=== PATIENT | male | born 1960 | race Caucasian/White ===

== ENCOUNTER 2018-04-11 10:51 | Outpatient (CLI) | payer MEDICAID ==
--- NOTE | 2018-04-11 14:42 | XRAY Report ---
Reason: KNEE PAIN,LEFT Procedure Date: 04/11/2018 Accession Number: [id number] / [id number] Procedure: XRN - Knee 3 View LT CPT Code: FULL RESULT: EXAM: LEFT KNEE RADIOGRAPHY EXAM DATE: 04/11/2018 11:20 AM. CLINICAL HISTORY: KNEE PAIN,LEFT. COMPARISON: None. TECHNIQUE: 3 views. FINDINGS: Bones: Normal. No fractures or bone lesions. Joints: Normal. No effusion. No subluxations. Soft Tissues: Normal. No soft tissue swelling. IMPRESSION: Negative knee radiography. [facility]
== END 2018-04-11 10:52 | disposition home or self-care (01) ==
LOC: DI.N 10:51
PROVIDERS: ATTEND Physician Assistant Medical
DX: M25.562 Pain in left knee (principal)

== ENCOUNTER 2018-09-02 10:03 | Outpatient (CLI) | payer MEDICAID ==
[2018-09-02 12:53] LABS: BASOPHILS # (AUTO) 0.2 10^3/uL (0.0-0.1); BASOPHILS % (AUTO) 2.1 %; EOSINOPHILS # (AUTO) 0.2 10^3/uL (0.0-0.7); EOSINOPHILS % (AUTO) 2.5 %; HGB - HEMOGLOBIN 16.8 g/dL (14.0-18.0); LYMPHOCYTES # (AUTO) 1.7 10^3/uL (1.5-3.5); LYMPHOCYTES % (AUTO) 24.4 %; MEAN CORPUSCULAR HEMOGLOBIN 31.3 pg (27.0-31.0); MEAN CORPUSCULAR HGB CONC 31.7 g/dL (32.0-36.0); MEAN CORPUSCULAR VOLUME 98.7 fL (80.0-94.0); MEAN PLATELET VOLUME 9.1 fL (7.4-11.4); MONOCYTES # (AUTO) 0.6 10^3/uL (0.0-1.0); MONOCYTES % (AUTO) 8.4 %; NEUTROPHILS # (AUTO) 4.5 10^3/uL (1.5-6.6); NEUTROPHILS % (AUTO) 62.6 %; PLT - PLATELET COUNT 339 10^3/uL (130-450); RED BLOOD COUNT 5.37 10^6/uL (4.70-6.10); RED CELL DISTRIBUTION WIDTH 16.3 % (12.0-15.0); WHITE BLOOD COUNT 7.1 x10^3/uL (4.8-10.8)
[2018-09-02 13:20] LABS: FOLATE 6.4 ng/mL (5.90 - >24.8)
[2018-09-02 13:28] LABS: % IRON SATURATION 23 % (20-50); ALBUMIN 4.2 g/dL (3.2-5.5); ALBUMIN/GLOBULIN RATIO 1.1 (1.0-2.2); ALKALINE PHOSPHATASE 85 IU/L (42-121); ALT ALANINE AMINOTRANSFERASE 28 IU/L (10-60); AST ASPARTATE AMINOTRANSFERASE 30 IU/L (10-42); BILIRUBIN,TOTAL 0.2 mg/dL (0.2-1.0); BUN - BLOOD UREA NITROGEN 31 mg/dL (6-20); CALCIUM 9.4 mg/dL (8.5-10.3); CARBON DIOXIDE - CO2 24 mmol/L (21-32); CHLORIDE 101 mmol/L (101-111); CHOL/HDL RATIO 3.4 (<5.0); CHOLESTEROL 196 mg/dL; CREATININE 1.6 mg/dL (0.6-1.2); GFR - MDRD 45 (>89); GLUCOSE 95 mg/dL (70-100); HDL CHOLESTEROL 57 mg/dL; IRON 78 ug/dL (45-182); LDL CHOLESTEROL,CALCULATED 126 mg/dL; LDL/HDL RATIO 2.2 (<3.6); SODIUM 133 mmol/L (135-145); TOTAL IRON BINDING CAPACITY 339 ug/dL (250-450); TRANSFERRIN 242 mg/dL (180-329); VLDL CHOLESTEROL 13 mg/dL
== END 2018-09-02 23:59 | disposition home or self-care (01) ==
LOC: LAB.N 10:03
PROVIDERS: ATTEND Nurse Practitioner
DX: I10 Essential (primary) hypertension (principal); E83.119 Hemochromatosis, unspecified
CPT/HCPCS: 36415; 80053; 80061; 82607; 82728; 82746; 83540; 83721; 84466; 85025

== ENCOUNTER 2019-03-06 14:21 | Outpatient (CLI) | payer MEDICAID ==
[2019-03-06 18:31] LABS: HGB - HEMOGLOBIN 16.1 g/dL (14.0-18.0)
[2019-03-06 18:33] LABS: BILIRUBIN,URINE NEGATIVE (NEGATIVE); GLUCOSE, URINE (UA) NEGATIVE (NEGATIVE); KETONES,URINE (UA) NEGATIVE (NEGATIVE); LEUKOCYTE ESTERASE, URINE NEGATIVE (NEGATIVE); NITRITE,URINE NEGATIVE (NEGATIVE); OCCULT BLOOD,URINE NEGATIVE (NEGATIVE); PH,URINE 5.5 PH (5.0-7.5); PROTEIN,URINE 30 mg/dL (NEGATIVE); UROBILINOGEN,URINE 0.2 (NORMAL) E.U./dL (NORMAL)
[2019-03-06 18:58] LABS: CLARITY,URINE CLEAR (CLEAR)
[2019-03-06 18:59] LABS: BACTERIA,URINE None Seen /HPF (None Seen); RBC,URINE None Seen /HPF (0-5); SQUAMOUS EPITHELIAL CELL,UR NONE SEEN (<= Few)
[2019-03-06 19:32] LABS: CREATININE,URINE 255.3 mg/dL; PROTEIN/CREATININE RATIO,URINE 0.2 (<=0.2)
[2019-03-06 19:39] LABS: FERRITIN 73.3 ng/mL (23.9-336.2)
[2019-03-06 19:57] LABS: CALCIUM 9.2 mg/dL (8.5-10.3); CREATININE 1.5 mg/dL (0.6-1.2); PHOSPHORUS 1.8 mg/dL (2.5-4.6)
== END 2019-03-06 23:59 | disposition home or self-care (01) ==
LOC: LAB.N 14:21
PROVIDERS: ATTEND Student in an Organized Health Care Education/Training Program
DX: N05.9 Unspecified nephritic syndrome with unspecified morphologic changes (principal); D50.0 Iron deficiency anemia secondary to blood loss (chronic); D64.9 Anemia, unspecified; N30.00 Acute cystitis without hematuria; R80.9 Proteinuria, unspecified; E83.30 Disorder of phosphorus metabolism, unspecified; N25.81 Secondary hyperparathyroidism of renal origin
CPT/HCPCS: 36415; 80048; 81001; 82570; 82728; 83540; 83970; 84100; 84156; 84466; 85014; 85018; 87086

== ENCOUNTER 2019-04-09 08:00 | Outpatient (CLI) | payer MEDICAID | END 2019-04-09 23:59 | disposition home or self-care (01) | LOC: LAB.N 08:00 | PROVIDERS: ATTEND Student in an Organized Health Care Education/Training Program | DX: E83.30 Disorder of phosphorus metabolism, unspecified (principal) | CPT/HCPCS: 36415; 84100 ==

== ENCOUNTER 2019-04-09 13:10 | Outpatient (CLI) | payer MEDICAID ==
--- NOTE | 2019-04-10 15:05 | XRAY Report ---
Reason: CARDIOMYPATHY Procedure Date: 04/09/2019 Accession Number: [id number] / [id number] Procedure: XRN - Chest 2 View X-Ray CPT Code: 82513 FULL RESULT: EXAM: CHEST RADIOGRAPHY, 2 VIEWS EXAM DATE: 04/09/2019 01:25 PM. CLINICAL HISTORY: Cardiomypathy in a 58-year-old male. COMPARISON: CHEST 2 VIEW PA/LAT 05/16/2016 4:27 PM. TECHNIQUE: Upright PA and lateral views. FINDINGS: Lungs/Pleura: Moderate hyperinflation bilaterally. Small bilateral nipple shadows again noted bilaterally. No infiltrates, effusions or pneumothorax. Mediastinum: Heart size normal, without adenopathy or pulmonary vascular congestion. Other: Trachea is midline. Osseous structures are unremarkable for age. IMPRESSION: Stable chest. Hyperinflation consistent with COPD, similar to prior exam. No pneumonia, CHF or other acute process. [facility]
== END 2019-04-09 13:11 | disposition home or self-care (01) ==
LOC: DI.N 13:10
PROVIDERS: ATTEND Physician Assistant Medical
DX: I42.9 Cardiomyopathy, unspecified (principal); E83.30 Disorder of phosphorus metabolism, unspecified
CPT/HCPCS: 36415; 71046; 84100

== ENCOUNTER 2019-09-18 13:35 | Outpatient (CLI) | payer MEDICAID ==
[2019-09-18 19:25] LABS: HGB - HEMOGLOBIN 17.6 g/dL (14.0-18.0)
[2019-09-18 19:43] LABS: CALCIUM 9.5 mg/dL (8.5-10.3); CREATININE 2.9 mg/dL (0.6-1.2); PHOSPHORUS 3.4 mg/dL (2.5-4.6)
[2019-09-18 20:16] LABS: CREATININE,URINE 135.9 mg/dL; PROTEIN/CREATININE RATIO,URINE 4.3 (<=0.2)
== END 2019-09-18 23:59 | disposition home or self-care (01) ==
LOC: LAB.N 13:35
PROVIDERS: ATTEND Student in an Organized Health Care Education/Training Program
DX: N05.9 Unspecified nephritic syndrome with unspecified morphologic changes (principal); R80.9 Proteinuria, unspecified; D64.9 Anemia, unspecified; E83.30 Disorder of phosphorus metabolism, unspecified; N25.81 Secondary hyperparathyroidism of renal origin
CPT/HCPCS: 36415; 80048; 82570; 83970; 84100; 84156; 85014; 85018

== ENCOUNTER 2019-09-24 11:36 | Outpatient (CLI) | payer MEDICAID ==
[2019-09-24 18:53] LABS: BILIRUBIN,URINE NEGATIVE (NEGATIVE); GLUCOSE, URINE (UA) NEGATIVE (NEGATIVE); KETONES,URINE (UA) NEGATIVE (NEGATIVE); LEUKOCYTE ESTERASE, URINE NEGATIVE (NEGATIVE); NITRITE,URINE NEGATIVE (NEGATIVE); OCCULT BLOOD,URINE TRACE-INTA (NEGATIVE); PROTEIN,URINE >=300 mg/dL (NEGATIVE); UROBILINOGEN,URINE 0.2 (NORMAL) E.U./dL (NORMAL)
[2019-09-24 18:54] LABS: CALCIUM 9.2 mg/dL (8.5-10.3); CREATININE 3.2 mg/dL (0.6-1.2)
[2019-09-24 19:02] LABS: CLARITY,URINE CLEAR (CLEAR)
[2019-09-24 19:23] LABS: BACTERIA,URINE None Seen /HPF (None Seen); RBC,URINE 0-5 /HPF (0-5); SQUAMOUS EPITHELIAL CELL,UR RARE Squamous (<= Few)
[2019-09-24 19:44] LABS: CREATININE,URINE 288.9 mg/dL; MICROALBUM/CREATININE RATIO,UR 3426.1 ug/mg (<30.0); MICROALBUMIN,URINE 989.8 mg/dL (0-300.0)
[2019-09-25 15:30] LABS: HEPATITIS B SURFACE ANTIGEN NON-REACTIVE (NON-REACTIVE); HEPATITIS C ANTIBODY NON-REACTIVE (NON-REACTIVE)
[2019-09-26 12:29] LABS: ANA SCREEN NEGATIVE (NEGATIVE)
[2019-09-26 14:25] LABS: GLOM BASEMENT MEMBRANE AB IGG <1.0 AI (<1.0)
[2019-09-26 14:55] LABS: COMPLEMENT COMPONENT C3C 143 mg/dL (82-185); COMPLEMENT COMPONENT C4C 42 mg/dL (15-53)
[2019-09-26 18:14] LABS: DNA (DS) ANTIBODY 1 IU/mL
== END 2019-09-24 23:59 | disposition home or self-care (01) ==
LOC: LAB.N 11:36
PROVIDERS: ATTEND Student in an Organized Health Care Education/Training Program
DX: L93.2 Other local lupus erythematosus (principal); M31.30 Wegener's granulomatosis without renal involvement; N05.9 Unspecified nephritic syndrome with unspecified morphologic changes; D89.89 Other specified disorders involving the immune mechanism, not elsewhere classified; R80.9 Proteinuria, unspecified; N30.00 Acute cystitis without hematuria; B19.10 Unspecified viral hepatitis B without hepatic coma; B17.10 Acute hepatitis C without hepatic coma
CPT/HCPCS: 36415; 80048; 81001; 81599; 82043; 82570; 83520; 83883; 84155; 84156; 84165; 84166; 86021; 86038; 86160; 86225; 86317; 86334; 86704; 86803; 87340

== ENCOUNTER 2019-09-25 12:49 | Outpatient (CLI) | payer MEDICAID ==
--- NOTE | 2019-09-26 11:04 | XRAY Report ---
Reason: L KNEE PAIN Procedure Date: 09/25/2019 Accession Number: [id number] / [id number] Procedure: XRN - Knee 3 View LT CPT Code: Final Report FULL RESULT: EXAM: LEFT KNEE RADIOGRAPHY EXAM DATE: 09/25/2019 01:07 PM. CLINICAL HISTORY: L KNEE PAIN. COMPARISON: KNEE 3 VIEW LT 04/11/2018 11:24 AM. TECHNIQUE: 3 views. FINDINGS: Bones: Normal. No fractures or bone lesions. Joints: Normal. No effusion. No subluxations. Soft Tissues: Normal. No soft tissue swelling. IMPRESSION: Negative left knee. [facility]
== END 2019-09-25 12:50 | disposition home or self-care (01) ==
LOC: DI.N 12:49
PROVIDERS: ATTEND Physician Assistant Medical
DX: M25.562 Pain in left knee (principal)

== ENCOUNTER 2021-01-12 13:10 | Emergency (ER) | payer MEDICAID ==
--- NOTE | 2021-01-12 13:43 | ED Physician Documentation ---
PD HPI DYSPNEA - Stated complaint Stated Complaint: SOA - Chief complaint Chief Complaint: Resp - History obtained from History obtained from: Patient - History of Present Illness Timing - onset: How many days ago (5) Timing - onset during: Rest Timing - duration: Days (5) Timing - details: Gradual onset, Still present Inciting event(s): URI Improved by: Other (nothing) Worsened by: Coughing Associated symptoms: Cough. No: Fever, Wheezing, Chest pain / discomfort, Palpitations, Diaphoresis, Bilateral edema Similar symptoms before: Has not had sx before Recently seen: Not recently seen - Additional information Additional information: Appears well 60-year-old male reports that he has been confined to his house for the past 6 weeks has not even gone to the grocery store he has developed some cough and shortness of breath over the past 5 days. He has come to the emergency department with this cough that once it starts will not stop. He denies ever having to use an inhaler. He does smoke. He does not recall if he has ever been treated for bronchitis. Review of Systems Constitutional: denies: Fever Eyes: denies: Decreased vision Ears: denies: Ear pain Nose: denies: Congestion Throat: denies: Oral lesions / sores, Sore throat Cardiac: denies: Chest pain / pressure, Palpitations, Pedal edema Respiratory: reports: Dyspnea, Cough GI: denies: Abdominal Pain, Nausea, Vomiting, Diarrhea : denies: Dysuria, Frequency PD PAST MEDICAL HISTORY - Past Medical History GI: Ulcers - Past Surgical History Past Surgical History: Yes - Present Medications Home Medications: Ambulatory Orders Medication Instructions Recorded Confirmed Aspirin [Brain] 325 mg PO DAILYWM #30 tablet 05/19/16 01/12/21 Atorvastatin [Lipitor] 80 mg PO QPM #30 tablet 05/19/16 01/12/21 amLODIPine [Norvasc] 5 mg PO DAILY #30 tablet 05/19/16 01/12/21 Azithromycin [Zithromax] 250 mg PO DAILY #6 tablet 01/12/21 cefUROXime axetiL [Ceftin] 500 mg PO Q12H #20 tablet 01/12/21 - Allergies Allergies/Adverse Reactions: Allergies Allergy/AdvReac Type Severity Reaction Status Date / Time Penicillins Allergy Unknown Verified 01/12/21 13:26 - Social History Does the pt smoke?: Yes Smoking Status: Current every day smoker Does the pt drink ETOH?: No Does the pt have substance abuse?: Yes PD ED PE NORMAL - Vitals Vital signs reviewed: Yes (hypertensive ) - General General: Alert and oriented X 3, No acute distress, Well developed/nourished - HEENT HEENT: Atraumatic, PERRL, EOMI, Other (right TM is normal left is not visualized secondary to cerumen) - Neck Neck: Supple, no meningeal sign, No bony TTP - Cardiac Cardiac: RRR, No murmur - Respiratory Respiratory: No respiratory distress, Clear bilaterally - Abdomen Abdomen: Normal bowel sounds, Soft, Non tender, Non distended, No organomegaly - Back Back: No CVA TTP, No spinal TTP - Derm Derm: Normal color, Warm and dry, No rash - Extremities Extremities: No deformity, No edema - Neuro Neuro: Alert and oriented X 3, supervisor type photography 2-12 intact, No motor deficit, No sensory deficit, Normal speech Eye Opening: Spontaneous Motor: Obeys Commands Verbal: Oriented GCS Score: 15 - Psych Psych: Normal mood, Normal affect Results - Vitals Vitals: Vital Signs - 24 hr 01/12/21 01/12/21 13:21 14:47 Temperature 36.8 C Heart Rate 76 75 Respiratory 15 18 Rate Blood Pressure 201/107 H 115/100 H O2 Saturation 99 100 Oxygen O2 Source Room air - Labs Labs: Laboratory Tests 01/12/21 13:40 Nasal Adenovirus (PCR) NOT DETECTED Nasal B. parapertussis DNA (PCR) NOT DETECTED Nasal Coronavir 229E PCR NOT DETECTED Nasal Coronavir HKU1 PCR NOT DETECTED Nasal Coronavir NL63 PCR NOT DETECTED Nasal Coronavir OC43 PCR NOT DETECTED Nasal Enterovir/Rhinovir PCR NOT DETECTED Nasal Influenza B PCR NOT DETECTED Nasal Influenza A PCR NOT DETECTED Nasal Parainfluen 1 PCR NOT DETECTED Nasal Parainfluen 2 PCR NOT DETECTED Nasal Parainfluen 3 PCR NOT DETECTED Nasal Parainfluen 4 PCR NOT DETECTED Nasal RSV (PCR) NOT DETECTED Nasal B.pertussis DNA PCR NOT DETECTED Nasal C.pneumoniae (PCR) NOT DETECTED Edison Human Metapneumo PCR NOT DETECTED Nasal M.pneumoniae (PCR) NOT DETECTED Nasal SARS-CoV-2 (PCR) NOT DETECTED - Rads (name of study) chest Radiology: Prelim report reviewed (Impression: Mild atypical pneumonia. Small right parapneumonic effusion.), EMP read indepedently, See rad report PD MEDICAL DECISION MAKING - ED course Complexity details: reviewed results, re-evaluated patient, considered differential, d/w patient, d/w family ED course: 60-year-old male with a cough and congestion plain film x-ray and he is administered Rocephin IM. We will place to keep patient on a course of a azithromycin and Ceftin as she is allergic to penicillins. Expectation is for full recovery. I did asked the patient if he was interested in a nebulizer treatment and he declined. He does not feel he is having that much trouble breathing. On exam he did not have significant wheeze. Departure - Departure Disposition: 01 Home, Self Care Clinical Impression: Pneumonia Qualifiers: Pneumonia type: due to unspecified organism Laterality: right Lung location: middle lobe of lung Qualified Code(s): J18.9 - Pneumonia, unspecified organism Condition: Stable Instructions: ED Pneumonia Adult Follow-Up: [facility] [Provider Group] Prescriptions: cefUROXime axetiL [Ceftin] 500 mg PO Q12H #20 tablet Azithromycin [Zithromax] 250 mg PO DAILY #6 tablet
--- NOTE | 2021-01-12 14:39 | XRAY Report ---
PROCEDURE: Chest 2 View X-Ray INDICATIONS: cough soa TECHNIQUE: 2 view(s) of the chest. COMPARISON: 01/12/2021 chest x-ray FINDINGS: Surgical changes and devices: None. Lungs and pleura: No pneumothorax. Small right pleural effusion. Mild bilateral perihilar and basila r reticulonodular density. Mediastinum: Mediastinal contours are normal. Heart size is normal. Bones and chest wall: No suspicious bony abnormalities. Soft tissues appear unremarkable. IMPRESSION: Mild atypical pneumonia. Small right parapneumonic effusion. Reviewed by: Gwen Giang MD on 01/12/2021 2:38 PM PDT Approved by: Gwen Giang MD on 01/12/2021 2:38 PM PDT Station ID: [id number]
[2021-01-12 14:44] LABS: B. PARAPERTUSSIS- RESP PCR PAN NOT DETECTED; B. PERTUSSIS- RESP PCR PANEL NOT DETECTED; C. PNEUMONIAE- RESP PCR PANEL NOT DETECTED; CORONAVIRUS 229E-RESP PCR NOT DETECTED; CORONAVIRUS HKU1-RESP PCR NOT DETECTED; CORONAVIRUS NL63-RESP PCR NOT DETECTED; CORONAVIRUS OC43-RESP PCR NOT DETECTED; HUMAN METAPNEUMOVIRUS NOT DETECTED; INFLUENZA A- RESP PCR PANEL NOT DETECTED; INFLUENZA B - RESP PCR PANEL NOT DETECTED; M. PNEUMONIAE- RESP PCR PANEL NOT DETECTED; PARAINFLUENZA VIRUS 1 NOT DETECTED; PARAINFLUENZA VIRUS 2 NOT DETECTED; PARAINFLUENZA VIRUS 3 NOT DETECTED; PARAINFLUENZA VIRUS 4 NOT DETECTED; RHINOVIRUS/ENTEROVIRUS NOT DETECTED; RSV- RESP PCR PANEL NOT DETECTED; SARS-CoV-2 -RESP PCR PANEL NOT DETECTED
[2021-01-12 14:47] VITALS: BP 115/100
[2021-01-12] MEDS ORDERED: LIDOCAINE 1% 2 ML VIAL MC ONE (14:50)
[2021-01-12] MEDS ORDERED: cefTRIAXone 1 GM VIAL IM STA (14:50)
== END 2021-01-12 15:49 | disposition home or self-care (01) ==
LOC: ED 13:10
DX: J18.9 Pneumonia, unspecified organism (principal); F17.200 Nicotine dependence, unspecified, uncomplicated; Z20.822 Contact with and (suspected) exposure to COVID-19
CPT/HCPCS: 0202U; 71046; 96372; 99284